=== PATIENT | female | born 1985 | race Caucasian/White ===

== ENCOUNTER → 2023-10-18 | Outpatient (CLI) | payer OTHER ==
[~2023-10-18] MED LIST: ATIVAN 0.50.5 MG/TAB PO; BCP TD; IBU600 MG PO; Iohexol 300 - 100 ML VIAL IV ONE; NS 100 ML IV SCH; PRENATAL TABLET PO; SLOW FE142 MG PO; TUMS500 MG; XANAX0.25 MG PO
== END ==
LOC: COL.RAD 13:37
DX: R07.9 Chest pain, unspecified (principal)
CPT/HCPCS: Q9967